=== PATIENT | female | born 1980 | race Caucasian/White ===

== ENCOUNTER 2017-04-21 17:54 | Emergency (ER) | payer MEDICAID ==
[~2017-04-21] VITALS: Ht 167.6 cm; Wt 59.0 kg
[2017-04-21 18:00] VITALS: BP 131/85
[2017-04-21] MEDS ORDERED: PHEN-705 PO (18:23)
[2017-04-21] MEDS ORDERED: CEPHALEXIN MONOHYDRATE 500 MG CAPSULE PO ONE ×2 (18:30)
[2017-04-21 18:37] LABS: APPEARANCE,URINE CLEAR (CLEAR); BILIRUBIN,URINE NEGATIVE (NEGATIVE); BLOOD, URINE 3+ Ery/uL (NEGATIVE); COLOR,URINE ORANGE (YELLOW); KETONES,URINE NEGATIVE (NEGATIVE); LEUKOCYTE ESTERASE ,URINE 3+ (NEGATIVE); NITRITE, URINE POSITIVE (NEGATIVE); PROTEIN,URINE 2+ mg/dl (NEGATIVE); UGLUCOSE TRACE mg/dL (NEGATIVE)
[2017-04-21 19:11] LABS: BACTERIA,URINE Many /HPF (None Seen); RBC,URINE 21-50 /HPF (0-2); SQUAMOUS EPITHELIAL CELL,UR Moderate /HPF (None Seen); WBC,URINE 21-50 /HPF (0-3)
== END 2017-04-21 18:59 | disposition home or self-care (01) ==
LOC: ER 18:00
DX: N30.00 Acute cystitis without hematuria (principal)
CPT/HCPCS: 81001; 84703; 87077; 87086; 87186; 99284; A4606; Z7610; 81000-TC

== ENCOUNTER 2017-07-12 08:03 | Emergency (ER) | payer SELFPAY ==
[~2017-07-12] VITALS: Ht 170.2 cm; Wt 65.8 kg
[2017-07-12 08:03] VITALS: BP 125/85
[~2017-07-12 08:03] MED LIST: PHEN-705 PO
[2017-07-12 08:51] LABS: APPEARANCE,URINE Slightly Cloudy (CLEAR); BILIRUBIN,URINE SMALL (NEGATIVE); BLOOD, URINE Large Ery/uL (NEGATIVE); COLOR,URINE Orange (YELLOW); KETONES,URINE Trace (NEGATIVE); LEUKOCYTE ESTERASE ,URINE Large (NEGATIVE); NITRITE, URINE Positive (NEGATIVE); PROTEIN,URINE >=300 mg/dl (NEGATIVE); UGLUCOSE 100 MG/DL mg/dL (NEGATIVE)
[2017-07-12 09:42] LABS: RBC,URINE 21-50 /HPF (0-2)
[2017-07-12 09:43] LABS: BACTERIA,URINE Moderate /HPF (None Seen); SQUAMOUS EPITHELIAL CELL,UR Few /HPF (None Seen)
[2017-07-12 09:44] LABS: WBC,URINE 81-100 /HPF (0-3)
== END 2017-07-12 09:04 | disposition home or self-care (01) ==
LOC: ER 08:09
DX: N30.00 Acute cystitis without hematuria (principal)
CPT/HCPCS: 81001; 84703; 87077; 87086; 87186; 99284; A4606; Z7610; 81000-TC